=== PATIENT | female | born 1980 | race Caucasian/White ===

== ENCOUNTER 2021-11-16 01:46 | Emergency (ER) | payer OTHER, SELFPAY ==
[2021-11-16 01:49] VITALS: BP 129/88; PULSE 108; RESP 20; TEMP 36.8; O2SAT 98; BMI 37.8
--- NOTE | 2021-11-16 01:55 | ED_ITS ---
HPI - Back Pain/Injury General Chief Complaint: Back Pain/Injury Stated Complaint: leg pain Time Seen by Provider: 11/16/21 01:49 Source: patient Mode of arrival: ambulatory Limitations: no limitations History of Present Illness MD elicited complaint: back pain and back injury Pertinent past history: prior back pain Onset (ago): day(s) (2) Timing: constant Severity: moderate Similar Symptoms Previously: Yes Quality: sharp Location: lumbar spine Radiation: right upper leg Exacerbating factors: movement Relieving factors: none Context: fall (almost slipped on ice) Associated symptoms: denies other symptoms Work related injury: No Related Data Previous Rx's Medication Instructions Recorded cyclobenzaprine 10 mg tablet 10 mg PO TID PRN #14 tab 11/16/21 ibuprofen 600 mg tablet 600 mg PO Q6H PRN #30 tab 11/16/21 lidocaine 4 % topical patch 1 patch TOPICAL DAILY PRN #10 ea 11/16/21 Allergies Allergy/AdvReac Type Severity Reaction Status Date / Time No Known Allergies Allergy Verified 11/16/21 01:54 [No Known Allergies*] Review of Systems Verdana 4l Review of Systems: Verdana 4d Verdana 4d Constitutional : No Weight loss, No Fever, No Chills, ENT/Mouth : No Hearing loss, No Ear Pain, No Nasal Congestion, No Sinus Pain, No Hoarseness, No sore throat, No Rhinorrhea, No Swallowing Difficulty Cardiovascular : No Chest Pain, No SOBSOB Respiratory : No Cough, No Dyspnea Gastrointestinal : No Nausea, No Vomiting, No Diarrhea, No abdominal Pain, No Hematochezia, No Melena Genitourinary : No Dysuria, No Urinary Frequency, No Hematuria, No Urinary Incontinence, Musculoskeletal : positive back pain Skin : No Skin Lesions, No rash Neuro : No Weakness, No Numbness, No Paresthesias, no loss of bowel or bladder incontinence, no saddle anesthesia [facility] Past Medical History Attestation statement: The following information was validated with the patient. Medical History Arthritis Carpal tunnel syndrome Fibromyalgia Social History Social History (Updated 11/16/21 @ 02:27 by Sita Magana DO) Patient Tobacco Use Status: Never used Tobacco Use of substances other than those prescribed or required for medical reasons: No Advance Directives: No Advance Directives Information Provided: Yes Patient : No Physical Exam Verdana 4l Vital Signs: Verdana 4d Verdana 4d Vital Signs: Verdana 4d Verdana 4Bd Last Vital Signs Verdana 4d Applications Engineer New 4d Applications Engineer New 4d Temp 98.2 F 11/16/21 01:49 Applications Engineer New 4d Pulse 108 H 11/16/21 01:49 Applications Engineer New 4d Resp 20 11/16/21 01:49 BP 129/88 11/16/21 01:49 Pulse Ox 98 11/16/21 01:49 BMI result Body Mass Index 37.8 Appearance: Alert. Oriented X3. No acute distress. Eyes: Pupils equal, round and reactive to light. ENT: Pharynx normal. Neck: Normal inspection. Neck supple. CVS: Normal heart rate and rhythm. Pulses normal. Respiratory: No respiratory distress. Breath sounds normal. Abdomen: Soft and nontender. Skin: Skin warm and dry. Normal skin color. Normal skin turgor. Extremities: No lower extremity edema. pain in R lower back and buttock area, able to ambulate in without issue, distal NV intact no clonus. pos pain with R leg raise Neuro: Oriented X 3. No motor deficit. No sensory deficit. MDM - Back Pain/Injury MDM Narrative Medical decision making narrative: 41 yo female with hx of fibromyalgia and sciatica here with R sided back pain down right leg after slipping at this time no b/b incontinence, no saddle anesthesia, no IVDA, no AC therapy no red flags - will give IM toradol and PO valium then DC home with muscle relaxers and NSAIDs - hx of same in past. Stable for DC able to ambulate in. Discharge Plan Discharge Clinical Impression: Sciatica Qualifiers: Laterality: right Qualified Code(s): M54.31 - Sciatica, right side Patient Disposition: Home, Self-Care Instructions: Sciatica (ED) Additional Instructions: return to ED for any worsening symptoms or concerns Prescriptions: New cyclobenzaprine 10 mg tablet 10 mg PO TID PRN (Reason: muscle spasm) Qty: 14 0RF lidocaine 4 % adhesive patch,medicated 1 patch topical DAILY PRN (Reason: pain) Qty: 10 0RF Rx Instructions: may leave on for up to 12 hrs ibuprofen 600 mg tablet 600 mg PO Q6H PRN (Reason: pain) Qty: 30 0RF Stand Alone Forms: Work/School Release Print Language: [place]
[2021-11-16] MEDS: Ketorolac Tromethamine 60 MG/2 ML VIAL IM (02:36)
[2021-11-16] MEDS: diazePAM 5 MG TABLET PO (02:36)
== END 2021-11-16 02:30 | disposition home or self-care (01) ==
PROVIDERS: Emergency Provider Emergency Medicine
DX: M54.31 Sciatica, right side (principal); M79.604 Pain in right leg
CPT/HCPCS: 99283; J1885

== ENCOUNTER 2022-04-22 17:39 | Emergency (ER) | payer OTHER, SELFPAY ==
[2022-04-22 18:06] VITALS: BP 112/71; PULSE 82; RESP 18; TEMP 36.2; O2SAT 98; BMI 37.0
--- NOTE | 2022-04-22 23:20 | ED_ITS ---
HPI - General Adult General Chief complaint: General Medical Stated complaint: absus in rectum Time Seen by Provider: 04/22/22 22:16 Source: patient Mode of arrival: ambulatory History of Present Illness HPI narrative: 41-year-old female with past medical history of arthritis, carpal tunnel, fibromyalgia, presenting to the ED complaining of abscess to left buttock x1 week. States area has been increasing in size/pain with slight drainage noted yesterday. Reports pain with BMs. Denies fever, chills, abdominal pain, dysuria/hematuria Onset (ago): day(s) Location: buttocks Related Data Previous Rx's Medication Instructions Recorded cyclobenzaprine 10 mg tablet 10 mg PO TID PRN muscle spasm #14 11/16/21 tabs ibuprofen 600 mg tablet 600 mg PO Q6H PRN pain #30 tabs 11/16/21 lidocaine 4 % topical patch 1 patch topical DAILY PRN pain #10 11/16/21 ea cephalexin 500 mg capsule 500 mg PO QID 7 days #28 caps 04/22/22 doxycycline hyclate 100 mg tablet 100 mg PO BID 7 days #14 tabs 04/22/22 Allergies Allergy/AdvReac Type Severity Reaction Status Date / Time No Known Allergies Allergy Verified 04/22/22 18:06 [No Known Allergies*] Review of Systems Review of Systems: Constitutional: No Weight loss, No Fever, No Chills ENT/Mouth: No Ear Pain, No Nasal Congestion, No Sinus Pain, No Hoarseness, No sore throat, No Rhinorrhea, No Swallowing Difficulty Cardiovascular: No Chest Pain, No SOB Respiratory: No Cough, No Sputum, No Wheezing Gastrointestinal: No Nausea, No Vomiting, No Diarrhea, No Constipation, No Abdominal pain Genitourinary: No Dysuria, No Urinary Frequency, No Hematuria, No Urinary Incontinence/retention, No Urgency, No Flank Pain Musculoskeletal: No joint pain, No Myalgias, No Joint Swelling Skin: + Skin Lesions, No rash Neuro: No Weakness, No Numbness, No Paresthesias Yes all other systems are reviewed and are negative [facility] Past Medical History Attestation statement: The following information was validated with the patient. Medical History Arthritis Carpal tunnel syndrome Fibromyalgia Social History Social History Patient Tobacco Use Status: Never used Tobacco Advance Directives: No Advance Directives Information Provided: No Physical Exam ED Vital Signs: Vital Signs - 24 hr 04/22/22 18:06 Temperature 97.1 F Pulse Rate 82 Respiratory Rate 18 Blood Pressure 112/71 Pulse Oximetry 98 Oxygen Delivery Method Room Air BMI result Body Mass Index 37.0 Const General: cooperative, healthy appearing and no acute distress Orientation/consciousness: patient oriented x3 Limitations: no limitations HENMT Head: Yes normal to inspection and Yes atraumatic Ears: hearing grossly normal bilaterally General nose exam: Normal external nose present Face and sinus: Yes normal facial exam Eyes General: appearance normal, both eyes and all related structures EOM: EOMs intact bilaterally Neck Neck: Yes normal visual inspection and Yes no meningeal signs Resp Effort & Inspection: normal respiratory effort and no respiratory distress Cardio Rate: regular rate Heart sounds: S1 normal heart sound present and S2 normal heart sound present GI Other: + left buttock perirectal abscess with pointing, fluctuance and induration. No appreciable anal involvement, no fluctuance on rectal exam. Inspection: Yes normal to inspection Palpation (GI): Soft to palpation, nontender, no guarding and not rigid Rectal Exam - Female: normal sphincter tone and External hemorrhoid(s) present (Without thrombosis or active bleeding) Skin Rashes: no rashes Wounds: no wounds Neuro General: patient oriented x3, tone normal and no meningeal signs Gait exam (Neuro): Normal gait present Extrem General: Yes normal to inspection Procedures Abscess I/D Site: dimitry-rectal Side (if applicable): left Local Anesthetic: lidocaine 2% and with epi Amount of anesthesia used (mL): 8 Technique: incised with blade Packing used?: iodoform Medical Decision Making [facility] Narrative Medical decision making narrative: 41-year-old female with past medical history of arthritis, carpal tunnel, fibromyalgia, presenting to the ED complaining of abscess to left buttock x1 week. On exam vital signs stable, NAD, nontoxic appearing, physical exam as above with pointing perirectal abscess. No appreciable perianal involvement. No evidence of Safia gangrene Plan: I&D, p.o. antibiotics, pain control Medical Records Medical records reviewed: Yes I reviewed the patient's medical records. Lab Data Lab results reviewed: Yes I reviewed the patient's lab results. Discharge Plan Discharge Clinical Impression: Perirectal abscess Patient Disposition: Home, Self-Care Instructions: Abscess Follow-up (ED), Abscess Incision and Drainage (DC) Additional Instructions: You have a perirectal abscess that was drained today in the emergency department, packing was placed. Avoid pulling the packing out. YOU NEED TO RETURN TO THE EMERGENCY DEPARTMENT IN 2 DAYS FOR WOUND RECHECK AND PACKING REMOVAL Doxycycline and Keflex for antibiotics please take as prescribed It is normal for the area to slightly drain for the next 24-48 hours however if draining increases, is Passy, you have fever, increasing or unremitting pain return to the emergency department Keep area dry and clean Tiene un absceso perirrectal que fue drenado hoy en el servicio de urgencias, se coloc? taponamiento. Evite sacar el empaque. DEBE REGRESAR AL DEPARTAMENTO DE EMERGENCIA EN 2 D? PARA REVISI?N DE LA HERIDA Y RETIRADA DEL EMPAQUE Doxiciclina y Keflex para antibi?ticos, t?melos seg?n lo prescrito Es normal que el ?rosa maria drene levemente victor manuel las pr?ximas 24 a 48 horas; sin embargo, si el drenaje aumenta, es Passy, ??tiene fiebre, dolor creciente o incesante, regrese al departamento de emergencias. Mantenga el ?rosa maria seca y limpia Prescriptions: New cephalexin 500 mg capsule 500 mg PO QID 7 Days Qty: 28 0RF doxycycline hyclate 100 mg tablet 100 mg PO BID 7 Days Qty: 14 0RF No Action cyclobenzaprine 10 mg tablet 10 mg PO TID PRN (Reason: muscle spasm) Qty: 14 0RF lidocaine 4 % adhesive patch,medicated 1 patch topical DAILY PRN (Reason: pain) Qty: 10 0RF Rx Instructions: may leave on for up to 12 hrs ibuprofen 600 mg tablet 600 mg PO Q6H PRN (Reason: pain) Qty: 30 0RF Referrals: Physician,Unknown J [Primary Care Provider] - 2 days (For packing removal) Interventions: ED Discharge Assessment Last Done: 04/22/22 23:52 Discharge Date/Time: 04/22/22 23:53 Print Language: [place]ian
[2022-04-22] MEDS: oxyCODONE HCl Immed Release 5 MG TABLET PO (23:48)
[2022-04-22] MEDS: cephALEXin 500 MG CAPSULE PO (23:48)
[2022-04-22] MEDS: Lidocaine HCl 2% PF/Epi 1:200 20 ML VIAL INFILTRATI (23:48)
== END 2022-04-22 23:53 | disposition home or self-care (01) ==
PROVIDERS: Emergency Provider Emergency Medicine Emergency Medical Services
DX: K61.1 Rectal abscess (principal); K64.4 Residual hemorrhoidal skin tags
CPT/HCPCS: 46050; 99283; 99284